=== PATIENT | female | born 1950 | race Caucasian/White ===

== ENCOUNTER 2017-10-15 02:23 | Outpatient (CLI) | payer MEDICARE, OTHER ==
[~2017-10-15 02:23] MED LIST: ONDA8TAB13 PO
== END 2017-10-15 23:59 | disposition home or self-care (01) ==
LOC: DIABETIC 02:23
PROVIDERS: ATTEND Family Medicine
DX: E11.65 Type 2 diabetes mellitus with hyperglycemia (principal); I10 Essential (primary) hypertension; Z85.828 Personal history of other malignant neoplasm of skin
CPT/HCPCS: G0108

== ENCOUNTER 2017-12-11 10:07 | Inpatient (IN) | payer MEDICARE, OTHER ==
[~2017-12-11] VITALS: Ht 154.9 cm; Wt 79.5 kg
[2017-12-11] MEDS ORDERED: aspirin 81mg tab.chew PO ONE (10:20)
[2017-12-11] MEDS ORDERED: normal saline 1000ml 1,000 ML IV ONE (10:30)
[2017-12-11] MEDS ORDERED: ondansetron/PF 4mg/2ml inj IV ONE (10:30)
[2017-12-11] MEDS ORDERED: LORazepam 2 mg/ml vial IV ONE (10:30)
[2017-12-11 10:43] LABS: INR 0.9 INR; PARTIAL THROMBOPLASTIN TIME 25 SECONDS (22-32); PROTHROMBIN TIME 9.4 SECONDS (9.0-12.0)
[2017-12-11 10:48] LABS: ALANINE AMINOTRANSFERASE 283 U/L (12-78); ALBUMIN 3.9 G/DL (3.4-5.0); ALKALINE PHOSPHATASE 134 IU/L (46-116); ANION GAP 12 (8-16); ASPARTATE AMINO TRANSFERASE 208 U/L (10-37); BILIRUBIN,TOTAL 0.5 MG/DL (0.1-1.0); BLOOD UREA NITROGEN 13 MG/DL (7-18); BUN/CREATININE RATIO 12.7 (6.6-38.0); CALCIUM 9.6 MG/DL (8.5-10.1); CHLORIDE 102 MMOL/L (99-107); CREATININE 1.02 MG/DL (0.40-0.90); GLUCOSE 166 MG/DL (70-104); SODIUM 141 MMOL/L (135-145); TOTAL CARBON DIOXIDE 26.7 MMOL/L (24-32); TOTAL PROTEIN 7.7 G/DL (6.4-8.2); eGFR 54 ML/MIN
[2017-12-11 10:50] LABS: BASOPHILS % (AUTO) 0.4 % (0-1); EOSINOPHILS # (AUTO) 0.2 X10'3 (0-0.9); EOSINOPHILS % (AUTO) 1.6 % (0-6); HEMOGLOBIN 13.8 g/dl (12.0-16.0); LYMPHOCYTES % (AUTO) 29.4 % (21-51); MEAN CORPUSCULAR HEMOGLOBIN 30.5 PG (27.0-31.0); MEAN CORPUSCULAR HGB CONC 34.5 % (33.0-36.5); MEAN CORPUSCULAR VOLUME 88.3 FL (78-98); MEAN PLATELET VOLUME 8.5 FL (7.4-10.4); MONOCYTES # (AUTO) 0.6 X10'3 (0-0.9); MONOCYTES % (AUTO) 6.1 % (2-12); NEUTROPHILS # (AUTO) 6.3 X10'3 (1.8-7.7); NEUTROPHILS % (AUTO) 62.5 % (42-75); PLATELET COUNT 419 X10'3 (140-440); RED BLOOD COUNT 4.53 X10'6 (4.20-5.60); RED CELL DISTRIBUTION WIDTH 13.9 % (11.5-14.5); WHITE BLOOD COUNT 10.1 X10'3 (4.5-11.0)
[2017-12-11] MEDS ORDERED: heparin 10,000 units/1 ML INJ IV ONE (11:00)
[2017-12-11] MEDS ORDERED: heparin 10,000 units/1 ML INJ IV PRN (11:00)
[2017-12-11] MEDS ORDERED: nitroGLYCERIN 0.4mg SUBLingual tab SL PRN (11:05)
[2017-12-11 12:58] LABS: CHOL/HDL RATIO 3.4 (0.00-4.99); CHOLESTEROL 205 MG/DL (0-200); HDL CHOLESTEROL 60 MG/DL (35-60); LDL CHOLESTEROL 127 MG/DL (50-100); TRIGLYCERIDES 105 MG/DL (20-135)
[2017-12-11] MEDS ORDERED: normal saline 1000ml 1,000 ML IV SCH (14:21)
[2017-12-11] MEDS ORDERED: morphine 2 MG/ML inj. syringe IV PRN (14:25)
[2017-12-11] MEDS ORDERED: magnesium hydroxide 30ml (MOM) UD suspension PO PRN (14:25)
[2017-12-11] MEDS ORDERED: mag hydrox/Alum hydrox/simeth 30ml oral suspension PO PRN (14:25)
[2017-12-11] MEDS ORDERED: ondansetron/PF 4mg/2ml inj IV PRN (14:25)
[2017-12-11] MEDS: tirofiban 5mg in NS 100mL 100 ML IV SCH (15:54)
[2017-12-11] MEDS ORDERED: METF500T PO (16:18)
[2017-12-11] MEDS ORDERED: GLUC1CAP PO (16:18)
[2017-12-11] MEDS ORDERED: DENO60DI (16:18)
[2017-12-11] MEDS ORDERED: LISI-600 PO (16:18)
[2017-12-11] MEDS ORDERED: ONDA4TAB9 SL (16:18)
[2017-12-11] MEDS ORDERED: OSC500T PO (16:18)
[2017-12-11] MEDS ORDERED: MELO-100 PO (16:18)
[2017-12-11] MEDS ORDERED: heparin 1,000unit/ml 10ml vial 10 ML ONE (16:23)
[2017-12-11] MEDS ORDERED: iohexol 350 MG/1 ML 200ml bottle ONE (16:23)
[2017-12-11] MEDS ORDERED: nitroGLYCERIN-Tridil 50MG/D5W 250 ML IV ONE (16:23)
[2017-12-11] MEDS ORDERED: LIDOcaine 1%/PF (10mg/ml) 5ml vial ONE ×2 (16:25→17:22)
[2017-12-11] MEDS ORDERED: iohexol 350 MG/ML 50ML vial IV ONE (16:26)
[2017-12-11] MEDS ORDERED: midazolam 2 mg/2 ml injection ONE (17:00)
[2017-12-11] MEDS ORDERED: fentaNYL/PF 50MCG/1 ML 2ML syringe ONE (17:00)
[2017-12-11] MEDS ORDERED: insulin Lispro (HumaLOG) vial - multi-dose SQ SCH (17:05)
[2017-12-11] MEDS ORDERED: dextrose 50%-water 50ml dispensing syringe IV PRN ×2 (17:05)
[2017-12-11] MEDS ORDERED: MESSAGE TO PHARMACY PO ONE (17:05)
[2017-12-11] MEDS ORDERED: dextrose ORAL solution 15 GM/59 ML bottle PO PRN ×2 (17:05)
[2017-12-11] MEDS ORDERED: glucagon, human recombinant 1mg kit SUBCUT PRN (17:05)
[2017-12-11] MEDS ORDERED: hydrALAZINE 20mg/ml inj. IV PRN (17:10)
[2017-12-11 17:17] LABS: HEMOGLOBIN A1C 6.6 % (4.5-6.2)
[2017-12-11 19:00] VITALS: BP 105/62
[2017-12-11 19:15] VITALS: BP 107/64
[2017-12-11] MEDS ORDERED: CHOL100046 PO (19:23)
[2017-12-11 19:30] VITALS: BP 110/70
[2017-12-11 19:45] VITALS: BP 115/68
[2017-12-11] MEDS: carvedilol 6.25mg tablet PO SCH (20:03)
[2017-12-11] MEDS: acetaminophen 325mg tablet PO PRN (20:03)
[2017-12-11 20:45] VITALS: BP 120/60
[2017-12-11] MEDS ORDERED: insulin glargine (Lantus) pen - multi-dose SQ SCH (21:00)
[2017-12-11 23:00] VITALS: BP 104/64
[2017-12-11 23:16] LABS: CREATININE 1.03 MG/DL (0.40-0.90); eGFR 53 ML/MIN
[2017-12-12 03:00] VITALS: BP 105/59
[2017-12-12] MEDS: tirofiban 5mg in NS 100mL 100 ML IV SCH (04:29)
[2017-12-12 05:31] LABS: ISTAT Hct MIX 30 %PCV (35-48); ISTAT O2 SATURATION MIX VENOUS 50 % (60-80); ISTAT SOURCE MIX
[2017-12-12 05:31] LABS: ISTAT HGB ART 10.9 g/dl (12.0-16.0); ISTAT Hct ART 32 %PCV (35-48); ISTAT O2 SATURATION ARTERIAL 97 % (95-98); ISTAT SOURCE ART
[2017-12-12 05:42] LABS: BASOPHILS % (AUTO) 0.2 % (0-1); EOSINOPHILS # (AUTO) 0.2 X10'3 (0-0.9); EOSINOPHILS % (AUTO) 2.7 % (0-6); HEMATOCRIT 28.6 % (35.0-45.0); LYMPHOCYTES # (AUTO) 2.3 X10'3 (1.1-4.8); LYMPHOCYTES % (AUTO) 26.4 % (21-51); MEAN CORPUSCULAR HEMOGLOBIN 30.6 PG (27.0-31.0); MEAN CORPUSCULAR HGB CONC 35.1 % (33.0-36.5); MEAN CORPUSCULAR VOLUME 87.2 FL (78-98); MEAN PLATELET VOLUME 8.4 FL (7.4-10.4); MONOCYTES # (AUTO) 0.7 X10'3 (0-0.9); MONOCYTES % (AUTO) 7.7 % (2-12); NEUTROPHILS # (AUTO) 5.5 X10'3 (1.8-7.7); PLATELET COUNT 299 X10'3 (140-440); RED BLOOD COUNT 3.27 X10'6 (4.20-5.60); WHITE BLOOD COUNT 8.7 X10'3 (4.5-11.0)
[2017-12-12 06:08] LABS: ALANINE AMINOTRANSFERASE 144 U/L (12-78); ALBUMIN 2.6 G/DL (3.4-5.0); ALBUMIN/GLOBULIN RATIO 0.9 (1.1-1.5); ALKALINE PHOSPHATASE 78 IU/L (46-116); ANION GAP 5 (8-16); ASPARTATE AMINO TRANSFERASE 64 U/L (10-37); BILIRUBIN,TOTAL 0.3 MG/DL (0.1-1.0); BLOOD UREA NITROGEN 16 MG/DL (7-18); BUN/CREATININE RATIO 16.8 (6.6-38.0); CALCIUM 7.8 MG/DL (8.5-10.1); CHLORIDE 108 MMOL/L (99-107); CREATININE 0.95 MG/DL (0.40-0.90); GLUCOSE 130 MG/DL (70-104); SODIUM 142 MMOL/L (135-145); TOTAL CARBON DIOXIDE 28.9 MMOL/L (24-32); TOTAL PROTEIN 5.4 G/DL (6.4-8.2); eGFR 58 ML/MIN
[2017-12-12 06:44] VITALS: BP 94/56
[2017-12-12] MEDS: acetaminophen 325mg tablet PO PRN (07:50)
[2017-12-12] MEDS ORDERED: lisinopril 5mg tablet PO SCH (08:00)
[2017-12-12] MEDS: carvedilol 6.25mg tablet PO SCH (08:00)
[2017-12-12] MEDS ORDERED: spironolactone 25 MG tablet PO SCH (08:30)
[2017-12-12 12:24] VITALS: BP 114/59
[2017-12-12] MEDS ORDERED: CARV6.253 PO (14:32)
[2017-12-12] MEDS ORDERED: LISI-604 PO (14:32)
[2017-12-12] MEDS ORDERED: SPIR25TA3 PO (14:32)
[2017-12-13 17:11] LABS: HBSAG SCREEN Negative (Negative); HEP A AB, IGM Negative (Negative); HEP B CORE AB, IGM Negative (Negative); HEPATITIS C ANTIBODY <0.1 s/co ratio (0.0-0.9)
== END 2017-12-12 15:30 | disposition home or self-care (01) | DRG 287 ==
LOC: ER 10:07 → ED HOLD 14:21 → PCU 3S 21:07
PROVIDERS: ADMIT Family Medicine; ATTEND Family Medicine
PROC: 4A023N8 Measurement of Cardiac Sampling and Pressure, Bilateral, Percutaneous Approach (ICD-10-PCS; principal; 2017-12-11)
PROC: B2111ZZ Fluoroscopy of Multiple Coronary Arteries using Low Osmolar Contrast (ICD-10-PCS; 2017-12-11)
PROC: B2151ZZ Fluoroscopy of Left Heart using Low Osmolar Contrast (ICD-10-PCS; 2017-12-11)
DX: I24.9 Acute ischemic heart disease, unspecified (principal); I51.81 Takotsubo syndrome; K75.81 Nonalcoholic steatohepatitis (NASH); E11.9 Type 2 diabetes mellitus without complications; E66.9 Obesity, unspecified; I10 Essential (primary) hypertension; R00.1 Bradycardia, unspecified; R79.89 Other specified abnormal findings of blood chemistry; E78.5 Hyperlipidemia, unspecified; M16.11 Unilateral primary osteoarthritis, right hip; Z79.84 Long term (current) use of oral hypoglycemic drugs; Z80.0 Family history of malignant neoplasm of digestive organs; Z80.6 Family history of leukemia; Z82.49 Family history of ischemic heart disease and other diseases of the circulatory system; Z68.33 Body mass index [BMI] 33.0-33.9, adult
CPT/HCPCS: 36415; 71045; 71250; 80053; 80061; 80074; 82565; 82803; 82948; 83036; 84484; 85014; 85025; 85347; 85610; 85730; 87070; 93005; 93306; 93460; 96361; 96374; 96375; 99152; 99153; 99285; A4620; A6257; C1769; J1644; J1815; J2001; J2060; J2250; J2405; J3010; J3246; J3490; J7030; Q9967

== ENCOUNTER 2018-04-20 03:42 | Outpatient (CLI) | payer MEDICARE, OTHER ==
[2018-04-17 13:38] VITALS: BP 139/72
[2018-04-17 13:43] VITALS: BP 132/75
[~2018-04-20 03:42] MED LIST changes: +CARV6.253 PO; +CHOL100046 PO; +DENO60DI; +GLUC1CAP PO; +LISI-604 PO; +MELO-100 PO; +METF500T PO; -ONDA8TAB13 PO; +OSC500T PO; +SPIR25TA5 PO
[2018-04-20 12:59] VITALS: BP 135/70
[2018-04-20 13:03] VITALS: BP 115/45
== END 2018-04-20 23:59 | disposition home or self-care (01) ==
LOC: DIABETIC 03:42
PROVIDERS: ATTEND Family Medicine
DX: E11.65 Type 2 diabetes mellitus with hyperglycemia (principal); I25.2 Old myocardial infarction; E78.5 Hyperlipidemia, unspecified; I25.10 Atherosclerotic heart disease of native coronary artery without angina pectoris; E66.9 Obesity, unspecified; I10 Essential (primary) hypertension; Z68.33 Body mass index [BMI] 33.0-33.9, adult; Z79.84 Long term (current) use of oral hypoglycemic drugs
CPT/HCPCS: G0108

== ENCOUNTER 2018-06-15 08:14 | Outpatient (CLI) | payer MEDICARE, OTHER ==
[2018-06-15 08:42] LABS: BASOPHILS % (AUTO) 0.4 % (0-1); EOSINOPHILS # (AUTO) 0.2 X10'3 (0-0.9); EOSINOPHILS % (AUTO) 2.1 % (0-6); HEMATOCRIT 35.9 % (35.0-45.0); HEMOGLOBIN 12.3 g/dl (12.0-16.0); LYMPHOCYTES # (AUTO) 2.5 X10'3 (1.1-4.8); LYMPHOCYTES % (AUTO) 29.3 % (21-51); MEAN CORPUSCULAR HGB CONC 34.1 % (33.0-36.5); MEAN CORPUSCULAR VOLUME 90.9 FL (78-98); MEAN PLATELET VOLUME 8.2 FL (7.4-10.4); MONOCYTES # (AUTO) 0.5 X10'3 (0-0.9); MONOCYTES % (AUTO) 6.4 % (2-12); NEUTROPHILS # (AUTO) 5.3 X10'3 (1.8-7.7); NEUTROPHILS % (AUTO) 61.8 % (42-75); PLATELET COUNT 349 X10'3 (140-440); RED BLOOD COUNT 3.95 X10'6 (4.20-5.60); RED CELL DISTRIBUTION WIDTH 13.5 % (11.5-14.5); WHITE BLOOD COUNT 8.6 X10'3 (4.5-11.0)
[2018-06-15 08:55] LABS: HEMOGLOBIN A1C 6.3 % (4.5-6.2); INR 0.9 INR; PROTHROMBIN TIME 9.4 SECONDS (9.0-12.0)
[2018-06-15 08:56] LABS: ALANINE AMINOTRANSFERASE 18 U/L (12-78); ALBUMIN 3.6 G/DL (3.4-5.0); ALKALINE PHOSPHATASE 81 IU/L (46-116); ANION GAP 8 (8-16); ASPARTATE AMINO TRANSFERASE 12 U/L (10-37); BILIRUBIN,TOTAL 0.2 MG/DL (0.1-1.0); BLOOD UREA NITROGEN 17 MG/DL (7-18); BUN/CREATININE RATIO 14.9 (6.6-38.0); CALCIUM 8.9 MG/DL (8.5-10.1); CHLORIDE 105 MMOL/L (99-107); CREATININE 1.14 MG/DL (0.40-0.90); GLUCOSE 121 MG/DL (70-104); POTASSIUM 4.5 MMOL/L (3.5-5.1); SODIUM 139 MMOL/L (135-145); TOTAL CARBON DIOXIDE 26.2 MMOL/L (24-32); TOTAL PROTEIN 7.1 G/DL (6.4-8.2); eGFR 47 ML/MIN
[2018-06-15 09:35] LABS: CLARITY,URINE CLOUDY (Clear); COLOR,URINE YELLOW (Yellow); GLUCOSE, URINE NEGATIVE (Neg); KETONES,URINE TRACE mg/dl (Neg); LEUKOCYTE ESTERASE ,URINE MODERATE (Neg); NITRITES, URINE NEGATIVE (Neg); OCCULT BLOOD,URINE NEGATIVE (Neg); PH,URINE 5.5 (4.8-8.0); PROTEIN,URINE NEGATIVE (Neg); UROBILINOGEN,URINE 0.2 E.U/dL (0.2-1.0)
[2018-06-15 09:36] LABS: UA COLLECTION TYPE NON-SPECIFIED
[2018-06-15 09:46] LABS: BACTERIA,URINE 1+ /HPF (Neg); MUCUS STRANDS MANY /LPF (Neg); RBC,URINE NONE SEEN /HPF (0-2); SQUAMOUS EPITHELIAL CELL,UR MANY /LPF (FEW)
== END 2018-06-15 23:59 | disposition home or self-care (01) ==
LOC: LAB 08:14
PROVIDERS: ATTEND Specialist
DX: Z01.818 Encounter for other preprocedural examination (principal); Z51.81 Encounter for therapeutic drug level monitoring; N39.0 Urinary tract infection, site not specified; E11.8 Type 2 diabetes mellitus with unspecified complications; M19.90 Unspecified osteoarthritis, unspecified site; Z85.828 Personal history of other malignant neoplasm of skin; Z79.899 Other long term (current) drug therapy
CPT/HCPCS: 36415; 80053; 81001; 83036; 85025; 85610; 87070

== ENCOUNTER 2018-06-22 09:44 | Inpatient (IN) | payer MEDICARE, OTHER ==
[2018-06-08 13:52] VITALS: BP 145/70
[2018-06-08 13:56] VITALS: BP 128/78
[2018-06-10 14:17] VITALS: BP 133/76
[2018-06-10 14:19] VITALS: BP 132/60
[2018-06-12 14:06] VITALS: BP 121/64
[2018-06-12 14:09] VITALS: BP 123/67
[~2018-06-22] VITALS: Ht 154.9 cm; Wt 97.0 kg
[2018-06-22] VITALS (18 sets, daily range): BP systolic 90–123; BP diastolic 53–78
[~2018-06-22 09:44] MED LIST changes: -CARV6.253 PO; -GLUC1CAP PO; -LISI-604 PO; +LISI40TA4 PO; -MELO-100 PO; +ONDA4TAB9 SL; +OXYB15TA PO; +SENN-93 PO; +TRAM1TAB PO
[2018-06-22] MEDS ORDERED: ringers solution, lacted 1,000 ML IV SCH (11:44)
[2018-06-22] MEDS ORDERED: proCHLORperazine 10 MG/2 ml inj IV PRN (11:45)
[2018-06-22] MEDS ORDERED: ondansetron/PF 4mg/2ml inj IV PRN ×2 (11:45→15:40)
[2018-06-22] MEDS ORDERED: meperidine/PF 25mg/ml syringe IV PRN ×3 (11:45)
[2018-06-22] MEDS ORDERED: morphine 4 MG/ML inj SYRINge IV PRN ×2 (11:45)
[2018-06-22] MEDS ORDERED: bacitracin inj 150,000 UNIT in sodium chloride irrig. sol 3,000 ML IR ONE (12:30)
[2018-06-22] MEDS ORDERED: CARV3.122 PO (12:38)
[2018-06-22] MEDS ORDERED: tranexamic acid inj. 1,500 MG in normal saline 100ml IV soln 85 ML IV ONE (13:30)
[2018-06-22] MEDS ORDERED: MIDAZolam 1mg/ml 10ml vial ONE (13:49)
[2018-06-22] MEDS ORDERED: fentaNYL/PF 50MCG/1 ML 2ML syringe ONE (13:49)
[2018-06-22] MEDS ORDERED: morphine /PF 1mg/ml 10ml inj. ONE (13:49)
[2018-06-22] MEDS ORDERED: propofol inj 20 ML IV ONE (14:36)
[2018-06-22] MEDS ORDERED: ROPIVAcaine 0.5% (5mg/ml) 30ml vial ONE (14:50)
[2018-06-22] MEDS ORDERED: albumin (Human) 5% 250ml 250 ML IV ONE (15:00)
[2018-06-22] MEDS ORDERED: ceFAZolin 1000mg inj ONE (15:12)
[2018-06-22] MEDS ORDERED: ePHEDrine 50MG/ML INJ. ONE (15:16)
[2018-06-22] MEDS ORDERED: OXYBUTYNIN CHLORIDE PO SCH (15:35)
[2018-06-22] MEDS ORDERED: naloxone 2mg/2ml inj 1.6 MG in normal saline 500ml IV soln 500 ML IV PRN (15:39)
[2018-06-22] MEDS ORDERED: insulin Lispro (HumaLOG) vial - multi-dose SQ SCH (15:40)
[2018-06-22] MEDS ORDERED: MESSAGE TO PHARMACY PO ONE (15:40)
[2018-06-22] MEDS ORDERED: magnesium hydroxide 30ml (MOM) UD suspension PO PRN (15:40)
[2018-06-22] MEDS ORDERED: glucagon, human recombinant 1mg kit SUBCUT PRN (15:40)
[2018-06-22] MEDS ORDERED: bisacodyl 10mg suppository rectal RC PRN (15:40)
[2018-06-22] MEDS ORDERED: HYDROmorphone inj. 0.5 MG/0.5 ML DISP.SYRIN IV PRN (15:40)
[2018-06-22] MEDS ORDERED: dextrose ORAL solution 15 GM/59 ML bottle PO PRN ×2 (15:40)
[2018-06-22] MEDS ORDERED: diphenhydrAMINE 50 mg/ml inj IV PRN (15:40)
[2018-06-22] MEDS ORDERED: dextrose 50%-water 50ml dispensing syringe IV PRN ×2 (15:40)
[2018-06-22] MEDS ORDERED: acetaminophen 325mg tablet PO PRN (15:40)
[2018-06-22] MEDS ORDERED: oxyCODONE/APAP 10/325mg tablet PO PRN (15:40)
[2018-06-22] MEDS ORDERED: diphenhydrAMINE 25mg capsule PO PRN ×2 (15:40)
[2018-06-22] MEDS ORDERED: HYDROmorphone 1 mg/ml syringe IV PRN (15:57)
[2018-06-22] MEDS: metFORMIN 500mg tablet PO SCH (17:00)
[2018-06-22] MEDS: ceFAZolin 1GM/D5W- ADD-VANTAGE 50 ML IV SCH ×2 (17:22→23:57)
[2018-06-22] MEDS: potassium cl 20mEq in 1/2 NS 1,000 ML IV SCH ×2 (17:23→23:39)
[2018-06-22] MEDS: ascorbic acid 500mg tablet PO SCH (19:59)
[2018-06-22] MEDS ORDERED: vancomycin/NS 1 GM ADD-VANTAGE 250 ML IV SCH (20:00)
[2018-06-22] MEDS: carVEDilol 3.125mg tablet PO SCH (20:00)
[2018-06-22] MEDS: sennosides 8.6mg tablet PO SCH (20:18)
[2018-06-22] MEDS: gabapentin 300mg capsule PO SCH (20:18)
[2018-06-22] MEDS: insulin glargine (Lantus) pen - multi-dose SQ SCH (21:00)
[2018-06-22] MEDS: ondansetron/PF 4mg/2ml inj IV PRN (21:11)
[2018-06-23 02:25] VITALS: BP 97/49
[2018-06-23] MEDS: potassium cl 20mEq in 1/2 NS 1,000 ML IV SCH ×3 (03:18→23:39)
[2018-06-23] MEDS ORDERED: ringers solution, lacted 1,000 ML IV SCH (05:00)
[2018-06-23] MEDS: oxyCODONE/APAP 10/325mg tablet PO PRN ×4 (05:17→17:26)
[2018-06-23] MEDS ORDERED: tranexamic acid inj. 1,000 MG in normal saline 100ml IV soln 90 ML IV ONE (05:30)
[2018-06-23] MEDS ORDERED: metoclopramide 5 mg/ml inj IV ONE (05:30)
[2018-06-23] MEDS ORDERED: oxyCODONE SR 10mg (sust. release) tab PO ONE (05:30)
[2018-06-23] MEDS ORDERED: gabapentin 300mg capsule PO ONE (05:30)
[2018-06-23] MEDS ORDERED: Cefazolin 2GM/50ML dext iso,osmotic IVPB IV ONE (05:30)
[2018-06-23] MEDS ORDERED: famotidine 20mg tablet PO ONE (05:30)
[2018-06-23] MEDS ORDERED: vancomycin inj 1,500 MG in normal saline 300ml IV soln IV ONE (05:30)
[2018-06-23] MEDS ORDERED: acetaminophen 325mg tablet PO ONE (05:30)
[2018-06-23 06:00] VITALS: BP 96/42
[2018-06-23 06:32] LABS: BASOPHILS % (AUTO) 0.1 % (0-1); EOSINOPHILS # (AUTO) 0.2 X10'3 (0-0.9); EOSINOPHILS % (AUTO) 2.5 % (0-6); HEMATOCRIT 28.3 % (35.0-45.0); HEMOGLOBIN 9.6 g/dl (12.0-16.0); LYMPHOCYTES # (AUTO) 1.3 X10'3 (1.1-4.8); LYMPHOCYTES % (AUTO) 16.7 % (21-51); MEAN CORPUSCULAR HEMOGLOBIN 30.5 PG (27.0-31.0); MEAN CORPUSCULAR HGB CONC 33.9 % (33.0-36.5); MEAN PLATELET VOLUME 8.6 FL (7.4-10.4); MONOCYTES # (AUTO) 0.7 X10'3 (0-0.9); MONOCYTES % (AUTO) 9.2 % (2-12); NEUTROPHILS # (AUTO) 5.4 X10'3 (1.8-7.7); NEUTROPHILS % (AUTO) 71.5 % (42-75); PLATELET COUNT 262 X10'3 (140-440); RED BLOOD COUNT 3.14 X10'6 (4.20-5.60); RED CELL DISTRIBUTION WIDTH 13.7 % (11.5-14.5); WHITE BLOOD COUNT 7.6 X10'3 (4.5-11.0)
[2018-06-23 06:39] LABS: ANION GAP 8 (8-16); CHLORIDE 102 MMOL/L (99-107); INR 1.1 INR; POTASSIUM 3.9 MMOL/L (3.5-5.1); PROTHROMBIN TIME 11.8 SECONDS (9.0-12.0); SODIUM 133 MMOL/L (135-145); TOTAL CARBON DIOXIDE 23.2 MMOL/L (24-32)
[2018-06-23] MEDS: carVEDilol 3.125mg tablet PO SCH ×2 (07:37→19:56)
[2018-06-23] MEDS: lisinopril 20mg tablet PO SCH (07:37)
[2018-06-23] MEDS: metFORMIN 500mg tablet PO SCH ×2 (07:41→17:26)
[2018-06-23] MEDS: multivitamins, therapeutics tablet PO SCH (07:41)
[2018-06-23] MEDS: ascorbic acid 500mg tablet PO SCH ×2 (07:41→19:55)
[2018-06-23] MEDS: gabapentin 300mg capsule PO SCH ×3 (07:42→19:55)
[2018-06-23] MEDS ORDERED: non-formulary drug (Lisinopril* 0.5 TAB) PO SCH (08:00)
[2018-06-23 10:00] VITALS: BP 100/54
[2018-06-23] MEDS ORDERED: warfarin 10mg tablet PO ONE (10:00)
[2018-06-23] MEDS: ondansetron/PF 4mg/2ml inj IV PRN (17:24)
[2018-06-23 18:00] VITALS: BP 100/56
[2018-06-23] MEDS: celeCOXIB 100mg capsule PO SCH (19:55)
[2018-06-23] MEDS: sennosides 8.6mg tablet PO SCH (19:59)
[2018-06-23] MEDS: insulin glargine (Lantus) pen - multi-dose SQ SCH (21:00)
[2018-06-23 22:00] VITALS: BP 111/50
[2018-06-24] MEDS: oxyCODONE/APAP 10/325mg tablet PO PRN ×2 (03:25→15:31)
[2018-06-24] MEDS ORDERED: albuterol 2.5 MG/3 ML nebule NEB PRN (05:10)
[2018-06-24 05:37] LABS: BASOPHILS % (AUTO) 0.2 % (0-1); EOSINOPHILS # (AUTO) 0.3 X10'3 (0-0.9); EOSINOPHILS % (AUTO) 3.5 % (0-6); HEMATOCRIT 28.6 % (35.0-45.0); HEMOGLOBIN 10.1 g/dl (12.0-16.0); LYMPHOCYTES # (AUTO) 1.6 X10'3 (1.1-4.8); LYMPHOCYTES % (AUTO) 19.7 % (21-51); MEAN CORPUSCULAR HEMOGLOBIN 31.6 PG (27.0-31.0); MEAN CORPUSCULAR HGB CONC 35.1 % (33.0-36.5); MEAN CORPUSCULAR VOLUME 90.1 FL (78-98); MEAN PLATELET VOLUME 8.7 FL (7.4-10.4); MONOCYTES # (AUTO) 0.9 X10'3 (0-0.9); MONOCYTES % (AUTO) 10.6 % (2-12); NEUTROPHILS # (AUTO) 5.5 X10'3 (1.8-7.7); PLATELET COUNT 266 X10'3 (140-440); RED BLOOD COUNT 3.18 X10'6 (4.20-5.60); RED CELL DISTRIBUTION WIDTH 13.7 % (11.5-14.5); WHITE BLOOD COUNT 8.4 X10'3 (4.5-11.0)
[2018-06-24 05:48] LABS: INR 1.6 INR; PROTHROMBIN TIME 16.4 SECONDS (9.0-12.0)
[2018-06-24 06:00] VITALS: BP 115/60
[2018-06-24] MEDS: ondansetron/PF 4mg/2ml inj IV PRN (07:14)
[2018-06-24] MEDS: potassium cl 20mEq in 1/2 NS 1,000 ML IV SCH (07:39)
[2018-06-24] MEDS: carVEDilol 3.125mg tablet PO SCH ×2 (07:45→20:00)
[2018-06-24] MEDS: lisinopril 20mg tablet PO SCH (07:46)
[2018-06-24] MEDS: ascorbic acid 500mg tablet PO SCH ×2 (07:50→20:04)
[2018-06-24] MEDS: oxybutynin 5mg tablet PO PRN ×2 (07:51→20:15)
[2018-06-24] MEDS: metFORMIN 500mg tablet PO SCH ×2 (07:51→17:30)
[2018-06-24] MEDS: multivitamins, therapeutics tablet PO SCH (07:51)
[2018-06-24] MEDS: gabapentin 300mg capsule PO SCH ×3 (07:52→20:04)
[2018-06-24] MEDS: celeCOXIB 100mg capsule PO SCH ×2 (07:52→20:04)
[2018-06-24 10:00] VITALS: BP 98/43
[2018-06-24] MEDS ORDERED: warfarin 3mg tablet PO ONE (10:00)
[2018-06-24 18:00] VITALS: BP 113/53
[2018-06-24] MEDS: sennosides 8.6mg tablet PO SCH (20:04)
[2018-06-24] MEDS: insulin glargine (Lantus) pen - multi-dose SQ SCH (21:00)
[2018-06-24 22:00] VITALS: BP 97/55
[2018-06-25] MEDS: oxyCODONE/APAP 10/325mg tablet PO PRN (00:01)
[2018-06-25] MEDS: acetaminophen 325mg tablet PO PRN ×2 (04:23→09:56)
[2018-06-25] MEDS ORDERED: ASPI-41 PO (04:46)
[2018-06-25 05:32] LABS: BASOPHILS % (AUTO) 0.2 % (0-1); EOSINOPHILS # (AUTO) 0.3 X10'3 (0-0.9); EOSINOPHILS % (AUTO) 3.5 % (0-6); HEMATOCRIT 26.2 % (35.0-45.0); LYMPHOCYTES # (AUTO) 2.2 X10'3 (1.1-4.8); LYMPHOCYTES % (AUTO) 28.8 % (21-51); MEAN CORPUSCULAR HEMOGLOBIN 31.3 PG (27.0-31.0); MEAN CORPUSCULAR HGB CONC 34.3 % (33.0-36.5); MEAN CORPUSCULAR VOLUME 91.1 FL (78-98); MEAN PLATELET VOLUME 8.5 FL (7.4-10.4); MONOCYTES # (AUTO) 0.8 X10'3 (0-0.9); MONOCYTES % (AUTO) 10.2 % (2-12); NEUTROPHILS # (AUTO) 4.4 X10'3 (1.8-7.7); NEUTROPHILS % (AUTO) 57.3 % (42-75); PLATELET COUNT 273 X10'3 (140-440); RED BLOOD COUNT 2.87 X10'6 (4.20-5.60); RED CELL DISTRIBUTION WIDTH 13.6 % (11.5-14.5); WHITE BLOOD COUNT 7.8 X10'3 (4.5-11.0)
[2018-06-25 05:36] LABS: INR 1.5 INR; PROTHROMBIN TIME 15.1 SECONDS (9.0-12.0)
[2018-06-25 06:00] VITALS: BP 111/64
[2018-06-25] MEDS: lisinopril 20mg tablet PO SCH (07:24)
[2018-06-25] MEDS: carVEDilol 3.125mg tablet PO SCH (07:24)
[2018-06-25] MEDS: multivitamins, therapeutics tablet PO SCH (07:35)
[2018-06-25] MEDS: metFORMIN 500mg tablet PO SCH (07:36)
[2018-06-25] MEDS: oxybutynin 5mg tablet PO PRN (07:37)
[2018-06-25] MEDS: celeCOXIB 100mg capsule PO SCH (07:37)
[2018-06-25] MEDS: gabapentin 300mg capsule PO SCH (07:37)
[2018-06-25] MEDS: ascorbic acid 500mg tablet PO SCH (07:38)
[2018-06-25 10:00] VITALS: BP 124/58
[2018-06-25] MEDS ORDERED: warfarin 3mg tablet PO ONE (10:00)
== END 2018-06-25 11:00 | disposition home health service (06) | DRG 470 ==
LOC: PAS IN 12:08 → EDSTATUS 14:15 → ORTHO 4S 17:05
PROVIDERS: ADMIT Specialist; ATTEND Specialist
PROC: 5A09357 Assistance with Respiratory Ventilation, Less than 24 Consecutive Hours, Continuous Positive Airway Pressure (ICD-10-PCS; 2018-06-22)
PROC: 0SR902Z Replacement of Right Hip Joint with Metal on Polyethylene Synthetic Substitute, Open Approach (ICD-10-PCS; principal; 2018-06-22 13:45)
PROC: 5A09357 Assistance with Respiratory Ventilation, Less than 24 Consecutive Hours, Continuous Positive Airway Pressure (ICD-10-PCS; 2018-06-24)
DX: M16.11 Unilateral primary osteoarthritis, right hip (principal); D62 Acute posthemorrhagic anemia; Z68.41 Body mass index [BMI] 40.0-44.9, adult; E11.9 Type 2 diabetes mellitus without complications; I10 Essential (primary) hypertension; R06.2 Wheezing; M81.0 Age-related osteoporosis without current pathological fracture; G47.30 Sleep apnea, unspecified; E66.9 Obesity, unspecified; Z79.899 Other long term (current) drug therapy; Z79.84 Long term (current) use of oral hypoglycemic drugs
CPT/HCPCS: 36415; 71045; 73502; 80051; 82948; 83036; 85025; 85610; 86885; 86900; 86901; 94760; 97110; 97116; 97162; 97530; A6253; A6449; A6455; A7000; C1758; C1776; J0690; J1815; J2250; J2274; J2405; J2704; J2795; J3010; J3370; J7030; J7120; P9045

== ENCOUNTER 2018-11-09 20:28 | Emergency (ER) | payer MEDICARE, OTHER ==
[~2018-11-09] VITALS: Ht 154.9 cm; Wt 70.1 kg
[~2018-11-09 20:28] MED LIST changes: +CARV3.122 PO; -SPIR25TA5 PO
--- NOTE | 2018-11-09 20:50 | NUR ---
I ASKED PT TO TRY TO PROVIDE A URINE SPECIMEN. PT STATED SHE WAS UNABLE TO URINATE BECAUSE SHE HAS OVERACTIVE BLADDER
[2018-11-09 21:03] LABS: BASOPHILS # (AUTO) 0.1 X10'3 (0-0.2); BASOPHILS % (AUTO) 0.5 % (0-1); EOSINOPHILS # (AUTO) 0.2 X10'3 (0-0.9); EOSINOPHILS % (AUTO) 1.8 % (0-6); HEMATOCRIT 34.4 % (35.0-45.0); HEMOGLOBIN 11.7 g/dl (12.0-16.0); LYMPHOCYTES # (AUTO) 2.2 X10'3 (1.1-4.8); LYMPHOCYTES % (AUTO) 17.2 % (21-51); MEAN CORPUSCULAR HEMOGLOBIN 29.9 PG (27.0-31.0); MEAN CORPUSCULAR HGB CONC 33.9 % (33.0-36.5); MEAN CORPUSCULAR VOLUME 88.2 FL (78-98); MEAN PLATELET VOLUME 8.5 FL (7.4-10.4); MONOCYTES # (AUTO) 0.9 X10'3 (0-0.9); MONOCYTES % (AUTO) 7.3 % (2-12); NEUTROPHILS # (AUTO) 9.5 X10'3 (1.8-7.7); NEUTROPHILS % (AUTO) 73.2 % (42-75); PLATELET COUNT 374 X10'3 (140-440); RED CELL DISTRIBUTION WIDTH 14.3 % (11.5-14.5); WHITE BLOOD COUNT 12.9 X10'3 (4.5-11.0)
[2018-11-09 21:19] LABS: ALANINE AMINOTRANSFERASE 33 U/L (12-78); ALBUMIN/GLOBULIN RATIO 0.7 (1.1-1.5); ALKALINE PHOSPHATASE 95 IU/L (46-116); ANION GAP 13 (8-16); ASPARTATE AMINO TRANSFERASE 20 U/L (10-37); BILIRUBIN,TOTAL 0.2 MG/DL (0.1-1.0); BLOOD UREA NITROGEN 25 MG/DL (7-18); BUN/CREATININE RATIO 23.4 (6.6-38.0); CALCIUM 8.2 MG/DL (8.5-10.1); CHLORIDE 103 MMOL/L (99-107); CREATININE 1.07 MG/DL (0.40-0.90); GLUCOSE 137 MG/DL (70-104); POTASSIUM 3.9 MMOL/L (3.5-5.1); SODIUM 140 MMOL/L (135-145); TOTAL CARBON DIOXIDE 24.4 MMOL/L (24-32); TOTAL PROTEIN 7.1 G/DL (6.4-8.2); eGFR 51 ML/MIN
[2018-11-09 21:24] LABS: INR 0.9 INR; PROTHROMBIN TIME 9.4 SECONDS (9.0-12.0)
[2018-11-09] MEDS ORDERED: normal saline 1000ML IV soln IVB ONE (21:25)
[2018-11-09] MEDS ORDERED: SPIR25TA5 PO (22:06)
[2018-11-09] MEDS ORDERED: ASPI-1265 PO (22:06)
[2018-11-09 23:53] LABS: CLARITY,URINE CLEAR (Clear); COLOR,URINE YELLOW (Yellow); GLUCOSE, URINE NEGATIVE (Neg); KETONES,URINE NEGATIVE (Neg); LEUKOCYTE ESTERASE ,URINE NEGATIVE (Neg); NITRITES, URINE NEGATIVE (Neg); OCCULT BLOOD,URINE NEGATIVE (Neg); PROTEIN,URINE NEGATIVE (Neg); UROBILINOGEN,URINE 0.2 E.U/dL (0.2-1.0)
[2018-11-09 23:55] LABS: UA COLLECTION TYPE VOIDED
[2018-11-10] MEDS ORDERED: ketorolac tromethamine 15mg/ml inj. IM ONE (00:15)
[2018-11-10 00:49] VITALS: BP 119/81
== END 2018-11-10 00:57 | disposition home or self-care (01) ==
LOC: ER 20:29
DX: R10.31 Right lower quadrant pain (principal); R11.0 Nausea; I10 Essential (primary) hypertension; E11.9 Type 2 diabetes mellitus without complications; M19.90 Unspecified osteoarthritis, unspecified site; Z98.890 Other specified postprocedural states; Z79.82 Long term (current) use of aspirin; Z79.899 Other long term (current) drug therapy
CPT/HCPCS: 36415; 80053; 81003; 85025; 85610; 96372; 99283; J1885; J7030